=== PATIENT | male | born 1940 | race Caucasian/White ===

== ENCOUNTER 2019-08-14 18:40 | Outpatient (CLI) | payer MEDICARE, OTHER | END 2019-08-14 18:41 | disposition short-term general hospital (02) | LOC: EMS 18:40 | PROVIDERS: ATTEND Surgery | DX: M54.5 Low back pain (principal); R53.1 Weakness; R19.5 Other fecal abnormalities | CPT/HCPCS: A0425; A0427 ==

== ENCOUNTER 2021-03-15 16:46 | Outpatient (CLI) | payer MEDICARE, OTHER | END 2021-03-15 16:47 | disposition home or self-care (01) | LOC: COV 16:46 | PROVIDERS: ATTEND Family Medicine | DX: U07.1 COVID-19 (principal) ==